=== PATIENT | female | born 1990 | race African-American/Black ===

== ENCOUNTER 2016-11-16 08:49 | Emergency (ER) | payer OTHER ==
[2016-11-16 08:56] VITALS: BP 120/76; PULSE 69; TEMP 97.7; BMI 24.1
[2016-11-16] MEDS ORDERED: KETOROLAC TROMETHAMINE 60 MG/2 ML VIAL IM ONE (09:23)
[2016-11-16] MEDS ORDERED: AMOXICILLIN 500 MG CAPSULE (FP) PO ONE (09:23)
[2016-11-16] MEDS ORDERED: KETOROLAC TROMETHAMINE 60 MG/2 ML VIAL ONE (09:26)
[2016-11-16] MEDS ORDERED: AMOX TR/POT CLAV 500MG/125MG TABLETS (FP) ONE (09:26)
--- NOTE | 2016-11-16 09:29 | PDOC ---
History of Present Illness - General Chief Complaint: Headache Stated Complaint: HEADACHE,TOOTH PAIN Time Seen by Provider: 11/16/16 09:11 History Source: Patient Exam Limitations: No Limitations - History of Present Illness Initial Comments: 11/16/16 09:24 Patient states had a dental extraction of her upper second molar left side one week ago and since that time has had worsened pain frontal headache and dental pain. States finished course of antibiotics which was amoxicillin and is been using intermittent ibuprofen. Is unable to see dentist as he is on vacation this week. 11/16/16 09:28 Timing/Duration: unsure Severity: mild, moderate Associated Symptoms: reports: denies symptoms, headaches, loss of appetite Past History - Travel Traveled outside of the country in the last 30 days: Yes Close contact w/someone who was outside of country & ill: Yes - Past Medical History Allergies/Adverse Reactions: Allergies Allergy/AdvReac Type Severity Reaction Status Date / Time No Known Allergies Allergy Verified 11/16/16 08:52 Home Medications: Ambulatory Orders Vitamins (Sjr) - 1 tab PO DAILY 08/07/15 Ferrous Sulfate [Feosol] 325 mg PO DAILY 08/15/15 Ibuprofen [Motrin -] 400 mg PO QID #28 tablet 08/17/15 Amoxicillin - [Amoxicillin 500mg Capsule -] 500 mg PO TID #21 capsule 11/16/16 Naproxen [Naprosyn -] 500 mg PO BID #20 tablet 11/16/16 Asthma: No Cancer: No Cardiac Disorders: No Diabetes: No HTN: No Seizures: No Thyroid Disease: No Other medical history: denies. - Reproductive History (#): 3 Para: 2 Spontaneous : 0 - Psycho/Social/Smoking Cessation Hx Anxiety: No Suicidal Ideation: No Smoking History: Never smoked Have you smoked in the past 12 months: No Hx Alcohol Use: No Drug/Substance Use Hx: No Substance Use Type: None Hx Substance Use Treatment: No Review of Systems - Review of Systems Able to Perform ROS?: Yes Is the patient limited [place] proficient: Yes Constitutional: Yes: Symptoms Reported, See HPI, Malaise. No: Chills, Fever HEENTM: Yes: Symptoms Reported, See HPI, Eye Pain, Mouth Pain, Other (facial and sinus tnederness ) Respiratory: Yes: See HPI. No: Symptoms reported, Cough Musculoskeletal: No: Symptoms Reported All Other Systems: Reviewed and Negative *Physical Exam - Vital Signs Last Vital Signs Temp Pulse Resp BP Pulse Ox 97.7 F 69 19 120/76 99 11/16/16 08:52 11/16/16 08:52 11/16/16 08:52 11/16/16 08:52 11/16/16 08:52 - Physical Exam General Appearance: Yes: Nourished, Appropriately Dressed, Apparent Distress, Mild Distress HEENT: positive: OLI, TMs Normal, Pharynx Normal, Nasal Congestion, Rhinorrhea , Sinus Tenderness, Other (healing dental extraction to upper left second molar , no abscess, tenderness, or obvious dry socket noted. However has tenderness reproduced zygomatic arch/maxillary sinus and extending into frontal sinuses. No bogginess, no erythema or swelling to face) Neck: positive: Lymphadenopathy (R), Lymphadenopathy (L). negative: Tender Respiratory/Chest: positive: Lungs Clear, Normal Breath Sounds Medical Decision Making - Medical Decision Making 11/16/16 09:30 Status post molar extraction, possible sinus inflammation. Will add an additional course of amoxicillin, given high-dose anti-inflammatories and have follow-up with dentist on Tuesday *DC/Admit/Observation/Transfer Diagnosis at time of Disposition: Pain, dental - Discharge Dispostion Disposition: HOME Condition at time of disposition: Stable Admit: No - Patient Instructions Printed Discharge Instructions: DI for Dental Pain Additional Instructions: Rest, drink lots of fluids: Teas, water, soups Saltwater gargles/ keep mouth clean and rinse after each meal May use wet teabag for pain relief to area Avoid hard chewing foods, stick to ice cream, Jell-O, yogurt etc. Tylenol or Motrin for fever and pain Complete all medication as prescribed Seek dental appointment as soon as possible for evaluation of dental injury/pain Followup with private physician in one to 2 days as needed Return to emergency department for worsened symptoms, fevers, swelling to face or worsened pain - Post Discharge Activity Work/School Note: Back to Work
== END 2016-11-16 09:36 | disposition home or self-care (01) ==
LOC: JERFT 08:49
PROC: 3E0233Z Introduction of Anti-inflammatory into Muscle, Percutaneous Approach (ICD-10-PCS; principal; 2016-11-16)
DX: K08.89 Other specified disorders of teeth and supporting structures (principal)
CPT/HCPCS: 96372; 99281-25

== ENCOUNTER 2017-04-19 11:02 | Emergency (ER) | payer OTHER ==
[2017-04-19 11:06] VITALS: BP 122/73; PULSE 66; TEMP 97.7; BMI 25.0
--- NOTE | 2017-04-19 12:12 | PDOC ---
History of Present Illness - General Chief Complaint: Headache Stated Complaint: HEADACHES Time Seen by Provider: 04/19/17 11:15 History Source: Patient Exam Limitations: No Limitations - History of Present Illness Initial Comments: 04/19/17 13:01 My Chief Complaint: headache for 4 days History of Present Illness: Pt. is a 26 y/o female with no significant medical history here today due to headache that waxes and wanes for 4 days. Pt report headache this morning is in her lower occipital area and is currently a 3-4 aching in nature. Pt. reports that last night headache was bandlike b/l and was a 5-5 aching in nature. Today pt. at work took ibuprofen at 10 am with some relief of pain. Pt. has woken her up at night however is not the worse headache ever. Headache is not associated with nausea, vomiting or dizziness, vision is slightly blurry when pain is worse. Pt. reports first having headaches starting approximately one year ago and occur every 1-2 months. Pt. saw here PCP Dr. Nunez 2 months ago and mentioned the headache, acccording to pt he thought they were due to her sinuses. Pt. denies any post nasal drip, cough, sore throat, fever or chills, palpitations or SOB. Pt. is not on control. Pt. denies any stressors at work or at home. pt. left work early due to pain. Pt. denies any recent travel. Medications: none Allergies: nkda Medical Hx. no significant medical history Surgical Hx: none Social Hx: lives with 3 children and boyfriend, denies smoking, drinking or any drug use. Timing/Duration: reports: waxing and waning (FOR LAST 4 DAYS ) Severity: Yes: moderate Associated Symptoms: reports: vision changes (WHEN HEADACHE IS WORSE SLIGHT BLURRED VISION) Past History - Past Medical History Allergies/Adverse Reactions: Allergies Allergy/AdvReac Type Severity Reaction Status Date / Time No Known Allergies Allergy Verified 04/19/17 11:03 Home Medications: Ambulatory Orders Acetaminophen/Caffeine/Butalb [Fioricet -] 1 - 2 tab PO BID PRN #20 tablet MDD 4 04/19/17 Asthma: No Cancer: No Cardiac Disorders: No Diabetes: No HTN: No Seizures: No Thyroid Disease: No Other medical history: none - Reproductive History (#): 3 Para: 2 Spontaneous : 0 - Psycho/Social/Smoking Cessation Hx Anxiety: No Suicidal Ideation: No Smoking History: Never smoked Have you smoked in the past 12 months: No Information on smoking cessation initiated: No Hx Alcohol Use: No Drug/Substance Use Hx: No Substance Use Type: None Hx Substance Use Treatment: No Review of Systems - Review of Systems Able to Perform ROS?: Yes Constitutional: No: Symptoms Reported HEENTM: Yes: Nose Congestion (LEFT nostril ) Respiratory: No: Symptoms reported Cardiac (ROS): No: Symptoms Reported ABD/GI: No: Symptoms Reported : No: Symptoms Reported Musculoskeletal: No: Symptoms Reported Integumentary: No: Symptoms Reported Neurological: Yes: Headache (for 4 days has woken at night due to headache has not been worse headache ever presently lower occipital is a 3 out of 10 ). No: Numbness, Paresthesia, Pre-Existing Deficit, Seizure, Tingling, Tremors, Weakness, Unsteady Gait, Ataxia, Dizziness, Other Psychiatric: No: Anxiety, Depression, Frequent Crying, Sleep Pattern Change, Emotional Problems, Mood Swings, Change in Appetite *Physical Exam - Vital Signs Last Vital Signs Temp Pulse Resp BP Pulse Ox 97.7 F 66 18 122/73 100 04/19/17 11:05 04/19/17 11:05 04/19/17 11:05 04/19/17 11:05 04/19/17 11:05 - Physical Exam General Appearance: Yes: Appropriately Dressed HEENT: positive: EOMI, OLI, TMs Normal, Nasal Congestion (left nostril superior turbinate edema ), Other (snellen OD 20/25 OS 20/40 OU 20/25). negative: Pharyngeal Erythema, Tonsillar Exudate, Tonsillar Erythema, Rhinorrhea , Sinus Tenderness Neck: negative: Lymphadenopathy (R), Lymphadenopathy (L) Respiratory/Chest: positive: Lungs Clear, Normal Breath Sounds. negative: Chest Tender, Respiratory Distress Cardiovascular: positive: Regular Rhythm, Regular Rate, S1, S2 Integumentary: positive: Normal Color Neurologic: positive: hack driver II-XII NML intact, Fully Oriented, Alert, Normal Response, Motor Strength 5/5, Responsive, Finger to Nose. negative: Respond to painful stimul, Numbness, Sensory Deficit ED Treatment Course - LABORATORY CBC & Chemistry Diagram: 04/19/17 12:14 04/19/17 12:14 Medical Decision Making - Medical Decision Making 04/19/17 12:48 Pt. is a 26 y/o female with no significant medical history here today due to headache that waxes and wanes for 4 days. Pt report headache this morning is in her lower occipital area and is currently a 3-4 aching in nature. Pt. reports that last night headache was bandlike b/l and was a 5-5 aching in nature. Today pt. at work took ibuprofen at 10 am with some relief of pain. Pt. has woken her up at night however is not the worse headache ever. Headache is not associated with nausea, vomiting or dizziness, vision is slightly blurry when pain is worse. Pt. reports first having headaches starting approximately one year ago and occur every 1-2 months. Pt. saw here PCP Dr. Nunez 2 months ago and mentioned the headache, acccording to pt he thought they were due to her sinuses. Pt. denies any post nasal drip, cough, sore throat, fever or chills, palpitations or SOB. Pt. is not on control. Pt. denies any stressors at work or at home. pt. left work early due to pain. Pt. denies any recent travel. Will r/o any intracranial cause of headache or sinus cause of headache. HEADACHE r/o intracranial cause of headache r/o sinusitis Plan: cbc with diff bmp urine hcg negative CT of headache without contrast unremarkable per Dr. Beaver CT of sinus without contrast no sinusitis or otomastoiditis, nasal septum deviated to left per Dr. Beaver fiorcet one tab now than will discharge with rx for fioricet 1-2 tabs bid prn X 20 tabs Follow up with opthomologist Follow up with PCP follow up with neurologist Laboratory Tests 04/19/17 12:14 WBC 4.2 D RBC 4.29 D Hgb 13.5 D Hct 39.6 D MCV 92.2 MCH 31.4 MCHC 34.1 RDW 12.8 D Plt Count 175 MPV 8.7 Neutrophils % 42.3 L D Lymphocytes % 43.9 H D Monocytes % 9.3 Eosinophils % 4.1 D Basophils % 0.4 D 04/19/17 13:00 Laboratory Tests 04/19/17 04/19/17 11:53 12:14 Sodium 140 Potassium 4.0 Chloride 104 Carbon Dioxide 29 D Anion Gap 7 L BUN 12 D Creatinine 0.7 D Random Glucose 76 Calcium 8.5 Urine HCG, Qual Negative 04/19/17 13:09 04/19/17 13:26 feeling much better will discharge to home 04/19/17 14:26 04/20/17 14:40 04/20/17 14:41 *DC/Admit/Observation/Transfer Diagnosis at time of Disposition: Head ache Qualifiers: Headache type: unspecified Headache chronicity pattern: unspecified pattern Intractability: not intractable Qualified Code(s): R51 - Headache - Discharge Dispostion Disposition: HOME Condition at time of disposition: Stable - Prescriptions Prescriptions: Acetaminophen/Caffeine/Butalb [Fioricet -] 1 - 2 tab PO BID PRN #20 tablet MDD 4 PRN Reason: Headache - Referrals Referrals: Ander Jang MD [Staff Physician] - Marlon Macario MD [Staff Physician] - - Patient Instructions Additional Instructions: Follow up with Dr. Salazar in the next few days Follow up with opthomologist for visual testing Follow up with neurologist as soon as possible Return to emergency room if syptoms worsen or new symptoms develop Patient voiced understanding of discharge instructions and all questions were answered
[2017-04-19] MEDS ORDERED: ACETAMINOPHEN/CAFFEINE/BUTALBITAL 1 TAB PO ONE (12:34)
[2017-04-19 12:35] LABS: BASOPHIL 0.4 % (0-2.0); EOSINOPHIL 4.1 % (0-4.5); MCH 31.4 pg (25.7-33.7); MCHC 34.1 g/dl (32.0-36.0); MEAN CELL VOLUME 92.2 fl (80-96); MEAN PLT VOLUME 8.7 fl (7.5-11.1); NEUTROPHILS 42.3 % (42.8-82.8); PLATELET COUNT 175 K/MM3 (134-434); RDW 12.8 % (11.6-15.6); WHITE BLOOD COUNT 4.2 K/mm3 (4.0-10.0)
[2017-04-19] MEDS ORDERED: ACETAMINOPHEN/CAFFEINE/BUTALBITAL 1 TAB ONE (12:41)
[2017-04-19 12:58] LABS: ANION GAP 7 (8-16); CALCIUM 8.5 mg/dL (8.5-10.1); CO2 29 mmol/L (21-32); CREATININE 0.7 mg/dL (0.55-1.02); GLUCOSE,RANDOM 76 mg/dL (74-106)
== END 2017-04-19 14:49 | disposition home or self-care (01) ==
LOC: JER 11:02
DX: R51 Headache (principal)
CPT/HCPCS: 36415; 70450-TC; 70486-TC; 80048; 84703; 85025; 99282-25

== ENCOUNTER 2018-02-07 11:33 | Emergency (ER) | payer OTHER ==
[2018-02-07 11:51] VITALS: BP 107/54; PULSE 83; TEMP 98.1; BMI 26.6
[2018-02-07] MEDS ORDERED: METOCLOPRAMIDE HCL INJECTION 10 MG/2 ML VIAL IVPUSH ONE (12:28)
[2018-02-07] MEDS ORDERED: KETOROLAC TROMETHAMINE 30 MG/1 ML VIAL IVPUSH ONE (12:28)
[2018-02-07] MEDS ORDERED: SODIUM CHLORIDE 0.9% 500 ML INFUS.BAG IV ONE (12:28)
--- NOTE | 2018-02-07 12:28 | PDOC ---
History of Present Illness - General Chief Complaint: Headache Stated Complaint: HEADACHES Time Seen by Provider: 02/07/18 12:11 - History of Present Illness Initial Comments: 02/07/18 12:28 CHIEF COMPLAINT: headache HISTORY OF PRESENT ILLNESS: 27 yo F with hx of headaches presents to ED with frontal headache lasting 3 days. She reports that she gets these headaches frequently and "they aren't getting better." She reports having had a CT scan and chart history notes that she had both a head and sinus CT scan last year that were both negative. Patient's boyfriend is at bedside at reports that she has trouble with her vision and "I think she needs glasses." Patient denies any acute change in vision, vomiting, loss of consciousness, or loss of memory. No recent travel or sick contacts. PAST MEDICAL HISTORY: Denies past medical history FAMILY HISTORY: Denies SOCIAL HISTORY:Denies tobacco, alcohol, illicit drug use. SURGICAL HISTORY: Denies ALLERGIES: No known drug allergies REVIEW OF SYSTEMS General/Constitutional: Denies fever or chills. Denies weakness, weight change. HEENT: Denies change in vision. Denies ear pain or discharge. Denies sore throat. Cardiovascular: Denies chest pain or shortness of breath. Respiratory: Denies cough, wheezing, or hemoptysis. Gastrointestinal: Denies nausea, vomiting, diarrhea or constipation. Denies rectal bleeding. Genitourinary: Denies dysuria, frequency, or change in urination. Musculoskeletal: Denies joint or muscle swelling or pain. Denies neck or back pain. Skin and breasts: Denies rash or easy bruising. Neurologic: Headache "like to the front of my head, behind my eyes" x 3 days. PHYSICAL EXAM General Appearance: Well-appearing, appropriately dressed. No apparent distress. HEENT: EOMI, PERRLA. No conjunctival pallor. No photophobia, scleral icterus. Respiratory/Chest: Lungs CTAB. Cardiovascular: RRR. S1, S2. Gastrointestinal/Abdominal: Normal bowel sounds. Abdomen soft, non-distended. No tenderness or rebound tenderness. No organomegaly, pulsatile mass, guarding , hernia, hepatomegaly, splenomegaly. Musculoskeletal/Extremities: Normal inspection. FROM of all extremities, normal capillary refill. Pelvis Stable. No CVA tenderness. No tenderness to extremities, pedal edema, swelling, erythema or deformity. Integumentary: Appropriate color, dry, warm. No cyanosis, erythema, jaundice or rash Neurologic: hand clipper II-XII intact. Fully oriented, alert. Appropriate mood/affect. Motor strength 5/5. No appreciable EOM palsy, facial droop or sensory deficit. A&Ox3, follow commands, respond appropriately CN2-12: conjugate gaze, pupil round, equal and reactive to light. Visual field full to confrontation. EOMI without nystagmus, pursuit is smooth without saccade. Facial sensation and muscle activation intact bilaterally. Hearing intact bilaterally. Palate elevate symmetrically. Shoulder shrug and neck turn full strength. Tongue protrude midline. Motor: UE and LE strength 5/5 throughout bilaterally. Muscle tone and bulk normal. Cerebellar: Rapid-alternating movement with regular rhythm without bradykinesia. [id number] and [id number]-[id number] intact bilaterally without dysmetria or overshoot. Gait narrow based. No shuffling. Full hip flexion and knee flexion. Negative Romberg Past History - Past Medical History Allergies/Adverse Reactions: Allergies Allergy/AdvReac Type Severity Reaction Status Date / Time No Known Allergies Allergy Verified 02/07/18 11:48 Home Medications: Ambulatory Orders Acetaminophen/Caffeine/Butalb [Fioricet -] 1 - 2 tab PO BID PRN #20 tablet MDD 4 02/07/18 Asthma: No Cancer: No Cardiac Disorders: No COPD: No Diabetes: No HTN: No Seizures: No Thyroid Disease: No Other medical history: denies. - Reproductive History (#): 3 Para: 2 Spontaneous : 0 - Suicide/Smoking/Psychosocial Hx Smoking History: Never smoked Have you smoked in the past 12 months: No Hx Alcohol Use: No Drug/Substance Use Hx: No Substance Use Type: None Hx Substance Use Treatment: No *Physical Exam - Vital Signs Last Vital Signs Temp Pulse Resp BP Pulse Ox 98.1 F 83 17 107/54 100 02/07/18 11:49 02/07/18 11:49 02/07/18 11:49 02/07/18 11:49 02/07/18 11:49 Medical Decision Making - Medical Decision Making 02/07/18 12:34 27 yo F with hx of headaches presents to ED with frontal headache lasting 3 days. -Upreg -IVF, Toradol, Reglan, Benadryl 02/07/18 13:33 Patient reassessed; at this time she reports that her headache has resolved and she feels better. Advised patient to take medication as prescribed and follow up with neurology and optometry this week. Advised patient of signs and symptoms for return to ED. Patient verbalized understanding and agrees to plan. *DC/Admit/Observation/Transfer Diagnosis at time of Disposition: Headache Qualifiers: Headache type: tension-type Headache chronicity pattern: acute headache Intractability: not intractable Qualified Code(s): G44.209 - Tension-type headache, unspecified, not intractable - Discharge Dispostion Disposition: HOME Condition at time of disposition: Stable - Prescriptions Prescriptions: Acetaminophen/Caffeine/Butalb [Fioricet -] 1 - 2 tab PO BID PRN #20 tablet MDD 4 PRN Reason: Headache - Referrals Referrals: Marlon Macario MD [Staff Physician] - Tyrese Jacobson [Other] - Patient Instructions Printed Discharge Instructions: DI for Hormonal and Tension Headaches Additional Instructions: Please take medications as prescribed. As discussed, you need to follow up with neurology and optometry for further evaluation and continued monitoring. If you develop ANY sudden change in vision; a sharp, sudden headache that you would consider the "worst headache of your life", loss of consciousness, loss of memory, or any new or worsening symptoms, please return to the ER immediately. - Post Discharge Activity
[2018-02-07] MEDS ORDERED: METOCLOPRAMIDE HCL INJECTION 10 MG/2 ML VIAL ONE (12:31)
[2018-02-07] MEDS ORDERED: KETOROLAC TROMETHAMINE 30 MG/1 ML VIAL ONE (12:31)
== END 2018-02-07 14:02 | disposition home or self-care (01) ==
LOC: JERFT 11:33
PROC: 3E033GC Introduction of Other Therapeutic Substance into Peripheral Vein, Percutaneous Approach (ICD-10-PCS; principal; 2018-02-07)
PROC: 3E0333Z Introduction of Anti-inflammatory into Peripheral Vein, Percutaneous Approach (ICD-10-PCS; 2018-02-07)
PROC: 3E0337Z Introduction of Electrolytic and Water Balance Substance into Peripheral Vein, Percutaneous Approach (ICD-10-PCS; 2018-02-07)
DX: G44.209 Tension-type headache, unspecified, not intractable (principal)
CPT/HCPCS: 84703; 96361; 96374; 96375; 99281-25

== ENCOUNTER 2020-06-03 10:14 | Emergency (ER) | payer OTHER ==
[2020-06-03 10:29] VITALS: BP 116/68; PULSE 102; TEMP 98.1; BMI 27.7
[2020-06-03 11:40] LABS: BASO % 0.4 % (0-2.0); EOS % 3.4 % (0-4.5); HEMATOCRIT 40.4 % (32.4-45.2); HEMOGLOBIN 13.7 GM/dL (10.7-15.3); LYMPH % 33.1 % (8-40); MCH 31.4 pg (25.7-33.7); MCHC 33.9 g/dl (32.0-36.0); MEAN CELL VOLUME 92.7 fl (80-96); MEAN PLT VOLUME 8.5 fl (7.5-11.1); MONO % 7.3 % (3.8-10.2); NEUT % 55.8 % (42.8-82.8); PLATELET COUNT 247 K/MM3 (134-434); RBC 4.36 M/mm3 (3.60-5.2); RDW 12.8 % (11.6-15.6); WHITE BLOOD COUNT 5.8 K/mm3 (4.0-10.0)
[2020-06-03] MEDS ORDERED: ACETAMINOPHEN 500 MG TABLET (FP) PO ONE (12:00)
--- NOTE | 2020-06-03 12:13 | PDOC ---
History of Present Illness - General Chief Complaint: Vaginal Bleeding Stated Complaint: 5WKS/ BLEEDING Time Seen by Provider: 06/03/20 11:04 History Source: Patient Exam Limitations: No Limitations - History of Present Illness Travel History: No Initial Comments: 06/03/20 12:13 29-year-old miscarriage 1 female currently 5 weeks presents to ED with intermittent red blood noted upon wiping after urination and on underwear for the past 3 days. Patient denies any injury recent sexual intercourse, back pain, or or vaginal discharge besides the bleeding. Patient does complain of mild mid suprapubic cramping and denies any medical history. Timing/Duration: reports: intermittent Quality: reports: mild, cramping Abdominal Pain Onset Location: reports: suprapubic Pain Radiation: reports: no radiation Aggravating Factors: improves with: None Alleviating Factors: improves with: None Past History - Travel History Traveled outside of the country in the last 30 days: No Close contact w/someone who was outside of country & ill: No - Medical History Allergies/Adverse Reactions: Allergies Allergy/AdvReac Type Severity Reaction Status Date / Time No Known Allergies Allergy Verified 06/03/20 10:26 Home Medications: Ambulatory Orders Acetaminophen/Caffeine/Butalb [Fioricet Tablets] 1 - 2 tab PO BID PRN #20 tablet MDD 4 02/07/18 Asthma: No Cancer: No Cardiac Disorders: No COPD: No Diabetes: No HTN: No Seizures: No Thyroid Disease: No - Reproductive History Is Patient Now?: Yes (#): 3 Para: 2 Spontaneous : 0 - Immunization History Immunization Up to Date: Yes - Psycho-Social/Smoking History Patient Lives Alone: No Lives with/in: spouse/SO Smoking History: Never smoked Have you smoked in the past 12 months: No - Substance Abuse Hx (Audit-C & DAST Scrn) How often the patient has a drink containing alcohol: Never Score: In Men: 4 or > Positive; In Women: 3 or > Positive: 0 Screen Result (Pos requires Nsg. Audit-10AR): Negative In the last yr the pt used illegal drug/Rx for NonMed reason: No Score: Yes response is considered Positive: 0 Screen Result (Positive result requires Nsg. DAST-10): Negative Review of Systems - Review of Systems Able to Perform ROS?: No Is the patient limited [place] Citizen proficient: No Constitutional: No: Symptoms Reported HEENTM: No: Symptoms Reported Respiratory: No: Symptoms reported Cardiac (ROS): No: Symptoms Reported ABD/GI: Yes: Abdominal cramping : Yes: Discharge Musculoskeletal: No: Symptoms Reported Integumentary: No: Symptoms Reported Neurological: No: Symptoms reported Endocrine: No: Symptoms Reported *Physical Exam - Vital Signs Last Vital Signs Temp Pulse Resp BP Pulse Ox 98.1 F 102 H 20 116/68 100 06/03/20 10:26 06/03/20 10:26 06/03/20 10:26 06/03/20 10:06/03/20 10:26 - Physical Exam General Appearance: Yes: Nourished, Appropriately Dressed. No: Apparent Distress HEENT: negative: Pale Conjunctivae Neck: positive: Supple Respiratory/Chest: negative: Respiratory Distress Cardiovascular: negative: Edema Female Pelvic Exam: positive: normal external exam, cervical os closed, vaginal bleeding (scant pinkish red). negative: normal adnexa, CMT Gastrointestinal/Abdominal: negative: Distended Integumentary: positive: Normal Color, Warm, Moist Neurologic: positive: Motor Strength 5/5 (ambulatory) ED Treatment Course - LABORATORY CBC & Chemistry Diagram: 06/03/20 11:31 06/03/20 11:31 - ADDITIONAL ORDERS Additional order review: 06/03/20 11:31 RBC 4.36 MCV 92.7 MCHC 33.9 RDW 12.8 MPV 8.5 Neutrophils % 55.8 D Lymphocytes % 33.1 D Monocytes % 7.3 Eosinophils % 3.4 Basophils % 0.4 - RADIOLOGY Radiology Studies Ordered: Category Date Time Status TRANSVAGINAL US PREG [US] Stat Ultrasound 06/03/20 11:06 Ordered Medical Decision Making - Medical Decision Making 06/03/20 12:06 CC: 5 weeks with vag bleeding x 3 days Exam: slightly tachy, scant vag bleeding noted in vault Plan: labs, urine, tylenol, u/s 06/03/20 14:11 The uterus is normal in size with no uterine masses seen. Slightly thickened endometrium 11 mm identified with no sonographic evidence of viable intrauterine gestation. Normal vascular and arterial flow bilaterally. If early is suspected correlation with serial beta hCG along with ultrasound is rec ommended patient does display a urinary tract infection. Patient will be treated with Keflex no previous urine culture on file 06/03/20 14:12 Laboratory Tests 06/03/20 06/03/20 06/03/20 11:31 11:31 12:20 WBC 5.8 Hgb 13.7 Hct 40.4 Absolute Neuts (auto) 3.2 Neutrophils % 55.8 D Sodium 140 Potassium 3.8 Chloride 105 Carbon Dioxide 29 Anion Gap 6 L BUN 8.4 Creatinine 0.9 Est GFR (CKD-EPI)NonAf 85.80 Random Glucose 85 Calcium 8.9 Magnesium 1.8 Beta HCG, Quant 19.7 Urine Blood 1+ H Ur Leukocyte Esterase 1+ H Urine WBC (Auto) 54 Urine RBC (Auto) 10 To return in 2 days for serial hCG and ultrasound or sooner if symptoms worsen Discharge - Discharge Information Problems reviewed: Yes Clinical Impression/Diagnosis: Abdominal pain affecting , UTI (urinary tract infection) Condition: Good Disposition: HOME - Follow up/Referral Referrals: Mulugeta Don [Primary Care Provider] - - Patient Discharge Instructions Patient Printed Discharge Instructions: DI for Abdominal Pain -- Early Pregnanc y Additional Instructions: Please follow-up in 2 days for repeat beta hCG along with ultrasound. May take Tylenol for discomfort but I do want to take antibiotics as prescribed for urinary tract infection. - Post Discharge Activity
[2020-06-03 12:16] LABS: ALBUMIN 3.7 g/dl (3.4-5.0); BILIRUBIN,TOTAL 0.3 mg/dL (0.2-1); BLOOD UREA NITROGEN 8.4 mg/dL (7-18); CALCIUM 8.9 mg/dL (8.5-10.1); CREATININE 0.9 mg/dL (0.55-1.3); MAGNESIUM 1.8 mg/dL (1.8-2.4); POTASSIUM 3.8 mmol/L (3.5-5.1); TOT PROT 7.7 g/dl (6.4-8.2)
[2020-06-03] MEDS ORDERED: ACETAMINOPHEN 325 MG TABLET (FP) ONE (12:30)
[2020-06-03 13:44] LABS: EPI CELLS 27 /uL (0-25.1); HYALINE CASTS 1 /uL (0-3.1); PH,URINE 6.5 (5.0-8.0); URINE APPEARANCE CLEAR; URINE BACTERIA 977 /uL (0-1359); URINE BILIRUBIN NEGATIVE (NEGATIVE); URINE COLOR YELLOW; URINE GLUCOSE (UA) NEGATIVE (NEGATIVE); URINE KETONE NEGATIVE (NEGATIVE); URINE LEUK ESTERASE 1+ (NEGATIVE); URINE NITRITE NEGATIVE (NEGATIVE); URINE PROTEIN NEGATIVE (NEGATIVE); URINE RBC 10 /uL (0-23.9); URINE WBC 54 /uL (0-25.8)
== END 2020-06-03 14:35 | disposition home or self-care (01) ==
LOC: JER 10:14
DX: O26.891 Other specified pregnancy related conditions, first trimester (principal); N39.0 Urinary tract infection, site not specified
CPT/HCPCS: 36415; 76817-TC; 80053; 81003; 83735; 84702; 85025; 86850; 86900; 86901; 87086; 99284-25